=== PATIENT | male | born 1990 | race Caucasian/White ===

== ENCOUNTER 2017-08-29 05:44 | Emergency (ER) | payer BC ==
[2017-08-29] MEDS ORDERED: Ketorolac 60 MG/2 ML SDV IM ONE (05:54)
--- NOTE | 2017-08-29 05:57 | EDM.PDOC ---
ED HPI GENERAL MEDICAL PROBLEM - General Chief Complaint: Lower Extremity Injury/Pain Stated Complaint: RIGHT ANKLE PAIN Time Seen by Provider: 08/29/17 05:54 - History of Present Illness INITIAL COMMENTS - FREE TEXT/NARRATIVE: HISTORY AND PHYSICAL: History of present illness: Patient's a 27-year-old white male presents with concern of right ankle pain he states he awoke with this he does not recall a specific injury he has had similar episode in the past but was related to an injury he denies history of gout denies fever chills nausea vomiting or other complaints Review of systems: As per history of present illness and below otherwise all systems reviewed and negative. Past medical history: As per history of present illness and as reviewed below otherwise noncontributory. Surgical history: As per history of present illness and as reviewed below otherwise noncontributory. Social history: No reported history of drug or alcohol abuse. Family history: As per history of present illness and as reviewed below otherwise noncontributory. Physical exam: HEENT: Atraumatic, normocephalic, pupils reactive, negative for conjunctival pallor or scleral icterus, mucous membranes moist, throat clear, neck supple, nontender, trachea midline. Lungs: Clear to auscultation, breath sounds equal bilaterally, chest nontender. Heart: S1S2, regular, negative for clicks, rubs, or JVD. Abdomen: Soft, nondistended, nontender. Negative for masses or hepatosplenomegaly. Negative for costovertebral tenderness. Pelvis: Stable nontender. Genitourinary: Deferred. Rectal: Deferred. Extremities: Right ankle has some small swelling noted there is no significant erythema or warmth no point tenderness no crepitation seamless neurovascular unremarkable Neuro: Awake, alert, oriented. Cranial nerves II through XII unremarkable. Cerebellum unremarkable. Motor and sensory unremarkable throughout. Exam nonfocal. Diagnostics: CBC uric acid x-ray right ankle Therapeutics: Toradol 60 mg IM Impression: #1 right ankle pain Definitive disposition and diagnosis as appropriate pending reevaluation and review of above. Right Ankle Pain Score (Numeric/FACES): 5 - Related Data Allergies Allergy/AdvReac Type Severity Reaction Status Date / Time No Known Allergies Allergy Verified 08/29/17 05:51 Home Meds: Home Meds . [No Known Home Meds] 08/29/17 [History] Review of Systems - Review of Systems Review Of Systems: ROS reveals no pertinent complaints other than HPI. ED EXAM, GENERAL - Physical Exam Exam: See Below (See dictation) Course - Vital Signs Last Recorded V/S: Last Vital Signs Temp 36.4 C 08/29/17 05:47 Pulse 96 08/29/17 05:47 Resp 20 08/29/17 05:47 BP 160/103 H 08/29/17 05:47 Pulse Ox 97 08/29/17 05:47 - Orders/Labs/Meds Orders: Active Orders 24 hr Category Date Time Status Ankle Min 3V Rt [CR] Stat Exams 08/29/17 05:51 Ordered Departure - Departure Time of Disposition: 05:55 Disposition: Home, Self-Care 01 Condition: Good Clinical Impression: Ankle pain - Discharge Information Referrals: PCP,None [Primary Care Provider] - Additional Instructions: The following information is given to patients seen in the emergency department who are being discharged to home. This information is to outline your options for follow-up care. We provide all patients seen in our emergency department with a follow-up referral. The need for follow-up, as well as the timing and circumstances, are variable depending upon the specifics of your emergency department visit. If you don't have a primary care physician on staff, we will provide you with a referral. We always advise you to contact your personal physician following an emergency department visit to inform them of the circumstance of the visit and for follow-up with them and/or the need for any referrals to a consulting specialist. The emergency department will also refer you to a specialist when appropriate. This referral assures that you have the opportunity for followup care with a specialist. All of these measure are taken in an effort to provide you with optimal care, which includes your followup. Under all circumstances we always encourage you to contact your private physician who remains a resource for coordinating your care. When calling for followup care, please make the office aware that this follow-up is from your recent emergency room visit. If for any reason you are refused follow-up, please contact the [facility] emergency department at and asked to speak to the emergency department charge nurse. [facility] Professional [address], [address] [place] [address] Indomethacin as prescribed follow-up primary medical doctor and orthopedic clinic above call to schedule routine appointment return as needed as discussed - My Orders Last 24 Hours: My Active Orders 08/29/17 05:51 Ankle Min 3V Rt [CR] Stat - Assessment/Plan Last 24 Hours: My Active Orders 08/29/17 05:51 Ankle Min 3V Rt [CR] Stat
[2017-08-29 06:44] LABS: CHLORIDE,CL 105; SODIUM,NA 140 mmol/L (136-148)
--- NOTE | 2017-08-29 10:39 | CR ---
EXAM DATE: 08/29/17 PATIENT'S AGE: 27 Patient: ORALIA AKHTAR Facility: [place], [place] Site . Site : 1990 Study: XRay Extremity Right Ankle [id number]/28/2018 6:06:47 AM Ordering Physician: Doctor Jolley Final Report: INDICATION: No trauma; right posterior ankle pain. TECHNIQUE: Three-view study right ankle. FINDINGS: No evidence of fracture or dislocation. No bone or soft tissue abnormalities. Tibiotalar articulation is unremarkable. IMPRESSION: Negative radiographic examination of the right ankle. Dictated by Simon Velasquez MD @ Aug 29 2017 6:58AM (Electronic Signature) Report Signed by Proxy. TAMMY
== END 2017-08-29 06:55 | disposition home or self-care (01) ==
LOC: MW.ED 05:44
DX: M25.571 Pain in right ankle and joints of right foot (principal)
CPT/HCPCS: 36415; 73610; 80053; 84550; 85025; 96372; 99283; J1885

== ENCOUNTER 2023-03-21 17:20 | Emergency (ER) | payer OTHER ==
[2023-03-21] MEDS ORDERED: Sodium Chloride 0.9% 1,000 ML IV ONE (17:43)
[2023-03-21] MEDS ORDERED: Ondansetron 4 MG/2 ML SDV IVPUSH ONE (17:43)
[2023-03-21 18:49] LABS: BASOPHILS PERCENT AUTO 0.1 % (0.0-1.5); EOSINOPHILS ABSOLUTE AUTO 0.2 K/uL (0.0-0.7); EOSINOPHILS PERCENT AUTO 2.3 % (0.0-7.0); HEMATOCRIT 43.4 % (38.0-50.0); LYMPHOCYTES PERCENT AUTO 10.8 % (16.0-40.0); MEAN CORPUSCULAR HEMOGLOBIN 28.9 pg (27.0-32.0); MEAN CORPUSCULAR HGB CONC 34.6 g/dL (31.0-37.0); MEAN CORPUSCULAR VOLUME 83.6 fL (80.0-98.0); MONOCYTES ABSOLUTE AUTO 0.4 K/uL (0.0-0.8); MONOCYTES PERCENT AUTO 4.5 % (0.0-15.0); NEUTROPHILS ABSOLUTE AUTO 7.5 K/uL (1.4-5.7); NEUTROPHILS PERCENT AUTO 82.3 % (48.0-80.0); NRBC ABSOLUTE 0 K/uL; PLATELET COUNT,PLT 288 K/uL (150-400); RED BLOOD CELL COUNT 5.19 M/uL (4.50-5.90); WHITE BLOOD CELL COUNT,WBC 9.11 K/uL (4.0-11.0)
[2023-03-21 19:14] LABS: A/G RATIO 0.9 (0.9-1.6); ALBUMIN 3.8 g/dL (3.4-5.0); BILIRUBIN TOTAL 1.3 mg/dL (0.2-1.0); CALCIUM 9.5 mg/dL (8.5-10.1); CARBON DIOXIDE,CO2 27.6 mmol/L (21.0-32.0); CREATININE 1.1 mg/dL (0.8-1.3); EST CRCL DRUG DOSING (CG) 96.41 mL/min; PROTEIN TOTAL,TP 7.8 g/dL (6.4-8.2)
== END 2023-03-21 20:17 | disposition home or self-care (01) ==
LOC: MW.ED 17:20
DX: A08.4 Viral intestinal infection, unspecified (principal); Z79.84 Long term (current) use of oral hypoglycemic drugs; Z79.899 Other long term (current) drug therapy
CPT/HCPCS: 36415; 80053; 83690; 85025; 96361; 96374; 99284; J2405; J7030

== ENCOUNTER 2023-11-05 09:59 | Emergency (ER) | payer OTHER | END 2023-11-05 11:04 | disposition home or self-care (01) | LOC: MW.ED 09:59 | DX: S40.011A Contusion of right shoulder, initial encounter (principal); E11.9 Type 2 diabetes mellitus without complications; Z79.899 Other long term (current) drug therapy; W20.8XXA Other cause of strike by thrown, projected or falling object, initial encounter; Z75.8 Other problems related to medical facilities and other health care | CPT/HCPCS: 73010-26-RT; 73010-RT; 99283 ==